=== PATIENT | female | born 1945 | race Caucasian/White ===

== ENCOUNTER 2020-05-10 22:21 | Emergency (ER) | payer MEDICARE ==
[~2020-05-10] VITALS: Ht 170.2 cm; Wt 89.0 kg
[~2020-05-10 22:21] MED LIST: ALPHA LIPOIC A200 MG; CALCIUM 600 +600 MG; EQ OMEPRAZOLE20 MG PO; GLIPIZIDE10 M3 PO; GLIPIZIDE5 M2 PO; JANUVIA25 MG PO; JANUVIA50 MG PO; KOMBIGLYZE1 TA1 PO; METFORMIN HCL1000 MG PO; ONGLYZA5 MG PO; PRAVASTATIN20 MG PO; ZESTRIL5 M1 PO
[2020-05-10 23:09] LABS: URINE BILIRUBIN - DIPSTICK NEGATIVE (NEGATIVE); URINE BLOOD DIPSTICK LARGE (NEGATIVE); URINE COLOR YELLOW; URINE GLUCOSE - DIPSTICK >=1000 mg/dL (NEGATIVE); URINE KETONE NEGATIVE (NEGATIVE); URINE NITRITE - DIPSTICK NEGATIVE (Negative); URINE PH 5.5 (4.5-8.0); URINE PROTEIN - DIPSTICK TRACE mg/dL (NEG-TRACE); URINE SPECIFIC GRAVITY 1.025; URINE UROBILINOGEN - DIPSTICK 0.2 E.U./dL (0.2)
[2020-05-10 23:10] LABS: URINE LEUK ESTERASE MODERATE (NEGATIVE)
[2020-05-10 23:11] LABS: URINE BACTERIA FEW hpf; URINE EPITHELIAL CELLS MANY EPI/hpf (0-FEW); URINE WBC 20-50 WBC/hpf (0-5)
[2020-05-10 23:11] LABS: HEMATOCRIT 39.7 % (37.0-47.0); HEMOGLOBIN 12.4 g/dl (12.0-16.0); IMMATURE GRANULOCYTES 0.5 % (0.0-5.0); MEAN CELL VOLUME 85.4 fL CALC (80.0-100.0); MEAN CORPUSCULAR HGB 26.7 pG CALC (26.0-32.0); MEAN CORPUSCULAR HGB CONC 31.2 g/dL CAL (32.0-36.0); NEUT# 9.45 thou/uL (2.00-7.15); RED BLOOD COUNT 4.65 mill/uL (4.20-5.60); RED CELL DISTRI WIDTH 14.1 % (11.5-15.5)
[2020-05-10 23:22] LABS: ALBUMIN 4.2 g/dL (3.2-5.0); AMYLASE 69 u/l (30-110); ANION GAP 13 (6-22 (CALC)); BILIRUBIN, TOTAL 0.3 mg/dL (0.0-1.4); BUN 26 mg/dL (8-23); BUN/CREATININE RATIO 43 (12-20 (CALC)); CARBON DIOXIDE 29 mmol/l (22-30); CHLORIDE 96 mmol/l (95-108); CREATININE 0.6 mg/dL (0.5-1.0); GFR > 60 ML/MIN (>=60 (CALC)); GFR FOR AFR.AMER. > 60 ML/MIN (>=60 (CALC)); LIPASE 197 u/l (23-300); POTASSIUM 4.3 mmol/l (3.5-5.1); SGOT/AST 21 u/l (9-36); SODIUM 133 mmol/l (137-146); TOTAL PROTEIN 6.9 g/dL (6.3-8.2)
[2020-05-10 23:23] LABS: ALKALINE PHOSPHATASE 133 u/l (38-126)
[2020-05-10] MEDS ORDERED: SOLIQUA 100/331 INJ SC (23:26)
[2020-05-10] MEDS ORDERED: MELOXICAM15 MG PO (23:27)
[2020-05-10] MEDS ORDERED: PRAVASTATIN40 MG PO (23:27)
[2020-05-10] MEDS ORDERED: HYDROCHLOROT25 MG PO (23:27)
[2020-05-10] MEDS ORDERED: VITAMIN B 12250 MCG PO (23:28)
[2020-05-10] MEDS ORDERED: NITROFURANTN100 MG PO (23:29)
[2020-05-11] MEDS ORDERED: Levaquin PO (00:29)
[2020-05-11 00:32] VITALS: BP 140/80
--- NOTE | 2020-05-12 08:08 | NUR ---
RECD CALL FROM LAB, PRELIM BLOOD CX SHOW GRAM NEGATIVE RODS. CALLED PT, REPORTS SHE FEELS "MUCH BETTER". HAS HAD NO FURTHER UTI SYMPTOMS, NO FEVER, NO CHILLS, NO NAUSEA/VOMITING. ADVISED PT TO RETURN IF WORSENING SX. WILL F/U ON FINAL BLOOD CX.
--- NOTE | 2020-05-13 11:08 | NUR ---
FINAL BLOOD CULTURE RESULTS CALLED TO . PATIENT REPORTS FEELING BETTER AND WILL FOLLOW UP WITH PCP. RESULTS FAXED. ADVISED PATIENT TO RETURN TO THE ED IF FEVER OR CHILLS RETURN OR FOR ANY REASON IF NEEDED.
== END 2020-05-11 00:35 | disposition home or self-care (01) ==
LOC: ED 22:21
PROVIDERS: Emergency Medicine
DX: N39.0 Urinary tract infection, site not specified (principal); E11.65 Type 2 diabetes mellitus with hyperglycemia; Z79.4 Long term (current) use of insulin; Z87.442 Personal history of urinary calculi
CPT/HCPCS: J1956; Q9967

== ENCOUNTER 2021-01-25 10:09 | Emergency (ER) | payer MEDICARE ==
[~2021-01-25] VITALS: Ht 170.2 cm; Wt 80.0 kg
[~2021-01-25 10:09] MED LIST changes: +HYDROCHLOROT25 MG PO; +Levaquin PO; +MELOXICAM15 MG PO; +NITROFURANTN100 MG PO; +PRAVASTATIN40 MG PO; +SOLIQUA 100/331 INJ SC; +VITAMIN B 12250 MCG PO
[2021-01-25 10:57] LABS: HEMOGLOBIN 10.5 g/dl (12.0-16.0); IMMATURE GRANULOCYTES 0.8 % (0.0-5.0); MEAN CELL VOLUME 81.5 fL CALC (80.0-100.0); MEAN CORPUSCULAR HGB 25.5 pG CALC (26.0-32.0); MEAN CORPUSCULAR HGB CONC 31.3 g/dL CAL (32.0-36.0); NEUT# 21.7 thou/uL (2.00-7.15); RED BLOOD COUNT 4.11 mill/uL (4.20-5.60); RED CELL DISTRI WIDTH 14.4 % (11.5-15.5)
[2021-01-25 11:01] LABS: URINE BLOOD DIPSTICK LARGE (NEGATIVE); URINE GLUCOSE - DIPSTICK 100 mg/dL (NEGATIVE); URINE KETONE 15 mg/dL (NEGATIVE); URINE PH 6.5 (4.5-8.0); URINE PROTEIN - DIPSTICK 100 mg/dL (NEG-TRACE); URINE SPECIFIC GRAVITY 1.025
[2021-01-25 11:05] LABS: HEMATOCRIT 33.5 % (37.0-47.0)
[2021-01-25 11:08] LABS: URINE BILIRUBIN - DIPSTICK MODERATE (NEGATIVE); URINE COLOR BROWN; URINE LEUK ESTERASE MODERATE (NEGATIVE); URINE NITRITE - DIPSTICK POSITIVE (Negative)
[2021-01-25 11:10] LABS: ALBUMIN 3.8 g/dL (3.2-5.0); ALKALINE PHOSPHATASE 192 u/l (38-126); AMYLASE 56 u/l (30-110); ANION GAP 13 (6-22 (CALC)); BILIRUBIN, TOTAL 0.7 mg/dL (0.0-1.4); BUN 20 mg/dL (8-23); BUN/CREATININE RATIO 27 (12-20 (CALC)); CARBON DIOXIDE 27 mmol/l (22-30); CHLORIDE 97 mmol/l (95-108); CREATININE 0.7 mg/dL (0.5-1.0); GFR > 60 ML/MIN (>=60 (CALC)); GFR FOR AFR.AMER. > 60 ML/MIN (>=60 (CALC)); LIPASE 39 u/l (23-300); MAGNESIUM 1.2 mg/dL (1.6-2.3); POTASSIUM 3.5 mmol/l (3.5-5.1); SGOT/AST 55 u/l (9-36); SODIUM 133 mmol/l (137-146); TOTAL PROTEIN 7.1 g/dL (6.3-8.2)
[2021-01-25 11:14] LABS: URINE BACTERIA MANY hpf; URINE RBC >100 RBC/hpf (0-5)
[2021-01-25 11:26] LABS: ACT PARTIAL THROMBO TIME 20.9 SECONDS (20.0-32.5); PROTHROMBIN TIME 10.5 SECONDS (9.0-12.5)
[2021-01-25 11:31] LABS: D-DIMER 3.93 mg/L (0.19-0.60)
[2021-01-25 15:10] VITALS: BP 117/53
--- NOTE | 2021-01-26 08:23 | NUR ---
PRELIM BLOOD CX SHOW GRAM NEGATIVE RODS IN 4/4 BOTTLES, PRELIM URINE CX SHOWS E COLI. REPORTED BOTH TO ARYA AT [facility] ICU AND FAXED TO [phone]
== END 2021-01-25 14:20 | disposition short-term general hospital (02) ==
LOC: ED 10:09
DX: A41.9 Sepsis, unspecified organism (principal); N39.0 Urinary tract infection, site not specified; N13.5 Crossing vessel and stricture of ureter without hydronephrosis; K57.20 Diverticulitis of large intestine with perforation and abscess without bleeding; B96.20 Unspecified Escherichia coli [E. coli] as the cause of diseases classified elsewhere; Z20.822 Contact with and (suspected) exposure to COVID-19
CPT/HCPCS: J3475; Q9967

== ENCOUNTER 2024-11-08 23:28 | Emergency (ER) | payer MEDICARE ==
[~2024-11-08] VITALS: Ht 170.2 cm; Wt 94.0 kg
[~2024-11-08 23:28] MED LIST changes: +JARDIANCE10 MG; +ZOFRAN4 MG/TAB PO
[2024-11-08 23:41] VITALS: BP 140/59
[2024-11-09 00:01] VITALS: BP 122/45
[2024-11-09] MEDS ORDERED: ROSUVASTATIN CA20 MG (00:02)
[2024-11-09] MEDS ORDERED: VIT C/BIOFLV1000 MG PO (00:03)
[2024-11-09] MEDS ORDERED: TRESIBA FL100 UNIT/M SC (00:03)
[2024-11-09] MEDS ORDERED: IRON325 M1 PO (00:04)
[2024-11-09 00:05] VITALS: BP 118/47
[2024-11-09] MEDS ORDERED: CALTRAT1 PO (00:05)
[2024-11-09 00:06] LABS: BASO% 0.5 % (0-3); EOS% 4.2 % (0-8); HEMATOCRIT 42.9 % (37.0-47.0); HEMOGLOBIN 13.5 g/dl (12.0-16.0); IMMATURE GRANULOCYTES 0.3 % (0.0-5.0); LYMPH% 30.7 % (15-41); MEAN CELL VOLUME 90.3 fL CALC (80.0-100.0); MEAN CORPUSCULAR HGB 28.4 pG CALC (26.0-32.0); MEAN CORPUSCULAR HGB CONC 31.5 g/dL CAL (32.0-36.0); MONO% 6.4 % (2-13); NEUT# 5.4 thou/uL (2.00-7.15); NEUT% 57.9 % (42-76); RED BLOOD COUNT 4.75 mill/uL (4.20-5.60); RED CELL DISTRI WIDTH 13.1 % (11.5-15.5)
[2024-11-09] MEDS ORDERED: DIABETIC PILL (00:06)
[2024-11-09 00:12] LABS: ALBUMIN 3.7 g/dL (3.2-5.0); ALKALINE PHOSPHATASE 95 u/l (38-126); ANION GAP 8 (6-22 (CALC)); BILIRUBIN, TOTAL 0.4 mg/dL (0.02-1.3); BUN 23 mg/dL (8-23); BUN/CREATININE RATIO 30 (12-20 (CALC)); CARBON DIOXIDE 31 mmol/l (22-30); CHLORIDE 103 mmol/l (95-108); CREATININE 0.8 mg/dL (0.5-1.0); ESTIMATED GFR 76 ML/MIN (>=90 (CALC)); LIPASE 117 u/l (23-300); POTASSIUM 3.2 mmol/l (3.5-5.1); SGOT/AST 25 u/l (9-36); SODIUM 139 mmol/l (137-146); TOTAL PROTEIN 6.4 g/dL (6.3-8.2)
[2024-11-09 00:31] VITALS: BP 124/48
[2024-11-09 01:01] VITALS: BP 127/50
[2024-11-09 01:28] LABS: URINE BILIRUBIN - DIPSTICK Negative (NEGATIVE); URINE BLOOD DIPSTICK Negative (NEGATIVE); URINE GLUCOSE - DIPSTICK >=1000 mg/dL (NEGATIVE); URINE KETONE Negative (NEGATIVE); URINE LEUK ESTERASE Negative (NEGATIVE); URINE NITRITE - DIPSTICK Negative (Negative); URINE PH 5.5 (4.5-8.0); URINE PROTEIN - DIPSTICK Negative (NEG-TRACE); URINE UROBILINOGEN - DIPSTICK 0.2 E.U./dL (0.2)
[2024-11-09 01:33] LABS: URINE COLOR Yellow
[2024-11-09] MEDS ORDERED: POTASSIUM CHLORIDE 20 MEQ/TAB PO ONE (02:05)
[2024-11-09 02:45] VITALS: BP 127/50
== END 2024-11-09 02:45 | disposition home or self-care (01) ==
LOC: ED 23:28
PROVIDERS: Emergency Medicine
DX: R10.9 Unspecified abdominal pain (principal); E87.6 Hypokalemia; E11.9 Type 2 diabetes mellitus without complications; I10 Essential (primary) hypertension; Z79.4 Long term (current) use of insulin; R06.02 Shortness of breath
CPT/HCPCS: Q9967